=== PATIENT | female | born 1945 | race Caucasian/White ===

== ENCOUNTER 2017-10-19 07:39 | Day surgery (SDC) | payer MEDICARE, BC, OTHER ==
[2017-10-19] MEDS ORDERED: LIDOCAINE HCL 1% MPF SOL ONE (07:47)
[2017-10-19] MEDS ORDERED: PROPOFOL 500 MG/50 ML EMU IV ONE (07:48)
[2017-10-19 09:18] VITALS: TEMP 98.7
[2017-10-19 09:40] VITALS: BP 157/79; PULSE 89; RESP 20; O2SAT 96
== END 2017-10-19 10:08 | disposition home or self-care (01) | DRG 951 ==
LOC: SURG 07:39
PROVIDERS: ATTEND Internal Medicine Gastroenterology
DX: Z12.11 Encounter for screening for malignant neoplasm of colon (principal); E11.9 Type 2 diabetes mellitus without complications; K55.20 Angiodysplasia of colon without hemorrhage; Z80.0 Family history of malignant neoplasm of digestive organs; Z86.010 Personal history of colon polyps; K57.30 Diverticulosis of large intestine without perforation or abscess without bleeding; K64.8 Other hemorrhoids
CPT/HCPCS: 82962; J2001; J2704

== ENCOUNTER 2018-07-05 11:45 | Day surgery (SDC) | payer MEDICARE, BC, OTHER ==
[2018-07-05] MEDS ORDERED: MIDAZOLAM 2 MG/2 ML SOL ONE (12:01)
[2018-07-05] MEDS: TROPICAMIDE 1% OPHTH SOL ONE ×3 (12:15→12:25)
[2018-07-05] MEDS: PHENYLEPHRINE HCL 10% OPHTHAL SOL ONE ×3 (12:15→12:24)
[2018-07-05] MEDS: CYCLOPENTOLATE 1% SOL ONE ×3 (12:15→12:24)
[2018-07-05] MEDS: GATIFLOXACIN 2.5 ML DROP SOL LEFTEYE ONE ×2 (12:16→12:20)
[2018-07-05] MEDS: KETOROLAC/HOME 0.5% SOL LEFTEYE ONE ×3 (12:17→12:26)
[2018-07-05] MEDS ORDERED: LIDOCAINE HCL 2% MPF 10 ML SOL ONE (13:07)
[2018-07-05] MEDS ORDERED: BSS W/ 0.5 MG P.F. EPI 1 BOTTLE ONE (13:07)
[2018-07-05] MEDS ORDERED: POVIDONE IODINE 5% SOL ONE (13:07)
[2018-07-05] MEDS ORDERED: ACETAZOLAMIDE 250 MG PO ONE (13:27)
[2018-07-05] MEDS ORDERED: ACETAZOLAMIDE 500 MG CER PO ONE (13:45)
[2018-07-05 13:46] VITALS: BP 151/79; PULSE 83; RESP 18; TEMP 97.4; O2SAT 96
== END 2018-07-05 13:56 | disposition home or self-care (01) | DRG 125 ==
LOC: SURG 11:45
PROVIDERS: ATTEND Ophthalmology
DX: H25.89 Other age-related cataract (principal); E11.9 Type 2 diabetes mellitus without complications
CPT/HCPCS: J2250; A9270-GY

== ENCOUNTER 2018-07-19 10:38 | Day surgery (SDC) | payer MEDICARE, BC, OTHER ==
[2018-07-19] MEDS: CYCLOPENTOLATE 1% SOL ONE ×3 (10:50→11:00)
[2018-07-19] MEDS: TROPICAMIDE 1% OPHTH SOL ONE ×3 (10:51→11:01)
[2018-07-19] MEDS: PHENYLEPHRINE HCL 10% OPHTHAL SOL ONE ×3 (10:51→11:00)
[2018-07-19] MEDS ORDERED: GATIFLOXACIN 2.5 ML DROP SOL RIGHTEYE ONE ×2 (10:53→10:55)
[2018-07-19] MEDS ORDERED: KETOROLAC/HOME 0.5% SOL RIGHTEYE ONE ×3 (10:53→11:01)
[2018-07-19] MEDS: TETRACAINE HCL 0.5 % 1 DROP SOL ONE ×2 (11:02→12:05)
[2018-07-19] MEDS ORDERED: LIDOCAINE HCL 2% MPF 10 ML SOL ONE (11:36)
[2018-07-19] MEDS ORDERED: POVIDONE IODINE 5% SOL ONE (11:37)
[2018-07-19] MEDS ORDERED: [UNRECOGNIZED DRUG - OTHER] ONE (11:37)
[2018-07-19] MEDS ORDERED: BSS W/ 0.5 MG P.F. EPI 1 BOTTLE ONE (11:56)
[2018-07-19] MEDS ORDERED: MIDAZOLAM 2 MG/2 ML SOL ONE ×2 (11:57→12:37)
[2018-07-19] MEDS ORDERED: ACETAZOLAMIDE 250 MG PO ONE (12:12)
[2018-07-19 12:46] VITALS: BP 148/83; PULSE 79; RESP 20; TEMP 97.3; O2SAT 95
== END 2018-07-19 12:55 | disposition home or self-care (01) | DRG 125 ==
LOC: SURG 10:38
PROVIDERS: ATTEND Ophthalmology
DX: H25.89 Other age-related cataract (principal); E11.9 Type 2 diabetes mellitus without complications
CPT/HCPCS: 82962; J2250; A9270-GY